=== PATIENT | male | born 1940 | race Caucasian/White ===

== ENCOUNTER 2017-03-14 07:35 | Outpatient (CLI) | payer MEDICARE, BC ==
--- NOTE | 2017-03-14 10:40 | CT ---
CT ABDOMEN AND PELVIS WITH AND WITHOUT IV CONTRAST: Date: 03/14/17 HISTORY: 76-year-old male with hematuria and enlarged prostate. Kidney stones. Appendectomy. FINDINGS: Lung bases are unremarkable. No calcified gallstones are seen. There are multiple small low density lesions in the liver measuring up to 7.0 mm. A small hiatal hernia is present. The spleen, pancreas, and adrenal glands are unremarkable. There is a tiny calculus in the inferior pole of the right kidney. No calculi seen in the left kidne y, either ureter, or the urinary bladder. No hydroureteronephrosis is noted on either side. The pros grijalva is enlarged. There is a 3.5 cm exophytic cyst arising from the superior pole of the right kidne y. There are parapelvic cysts in the left kidney. No enhancing solid mass is seen arising from the k idneys. There is normal contrast excretion into the ureters and the urinary bladder. No free air, free fluid, or lymphadenopathy noted in the abdomen or pelvis. The small bowel loops ar e not abnormally dilated. There is colonic diverticulosis. Vascular calcifications are present witho ut evidence of aneurysmal dilatation of the abdominal aorta. There are degenerative changes in the s pine. IMPRESSION: 1. Tiny nonobstructing right renal calculus. 2. Bilateral renal cysts. 3. Prostatic enlargement. 4. Small hiatal hernia. 5. Small low density lesions in the liver, likely cysts. 6. Colonic diverticulosis. POS: [facility]
[2017-03-14] MEDS ORDERED: Iopamidol 370 76% 100 ML VIAL ONE (14:24)
== END 2017-03-14 07:36 | disposition home or self-care (01) ==
LOC: CT 07:35
PROVIDERS: ATTEND Urology
DX: R31.29 Other microscopic hematuria (principal); N20.0 Calculus of kidney; N28.1 Cyst of kidney, acquired; N40.0 Benign prostatic hyperplasia without lower urinary tract symptoms; K44.9 Diaphragmatic hernia without obstruction or gangrene; K76.9 Liver disease, unspecified; K57.30 Diverticulosis of large intestine without perforation or abscess without bleeding
CPT/HCPCS: 74178

== ENCOUNTER 2019-01-08 08:16 | Outpatient (CLI) | payer MEDICARE, BC ==
--- NOTE | 2019-01-08 08:39 | RAD ---
EXAM: Chest 2 views: HISTORY: Sarcoma COMPARISON: None. FINDINGS: There is a normal-sized cardiomediastinal silhouette. There is no evidence of consolidation, mass, or pleural effusion. The bones are unremarkable. IMPRESSION: No evidence of acute cardiopulmonary disease
== END 2019-01-08 08:17 | disposition home or self-care (01) ==
LOC: BICRAD 08:16
PROVIDERS: ATTEND Specialist
DX: C76.1 Malignant neoplasm of thorax (principal)
CPT/HCPCS: 71046

== ENCOUNTER 2019-01-08 15:54 | Outpatient (CLI) | payer MEDICARE, BC | END 2019-01-08 15:55 | disposition home or self-care (01) | LOC: LABBT 15:54 | PROVIDERS: ATTEND Specialist | DX: Z01.810 Encounter for preprocedural cardiovascular examination (principal); C80.1 Malignant (primary) neoplasm, unspecified | CPT/HCPCS: 36415; 71046; 80053; 85025; 93005; 93010 ==

== ENCOUNTER 2019-01-09 09:27 | Outpatient (CLI) | payer MEDICARE, BC ==
--- NOTE | 2019-01-09 10:57 | CT ---
CT CHEST WITH IV CONTRAST CT ABDOMEN WITH IV CONTRAST CT PELVIS WITH IV CONTRAST: HISTORY: high-grade myxofibrosarcoma upper back, status post resection COMPARISON: CT abdomen pelvis of 03/14/2017 FINDINGS: No mediastinal, hilar or axillary mass or lymphadenopathy seen. A tiny pericardial effusion is presen t. No pneumothoraces or pleural effusions are identified. No lung masses are seen. There is subsegmental atelectasis versus scarring in the right upper lobe. A small right perifissural nodule i s seen along the minor fissure. There are multiple small low-density lesions which are also seen on the previous exam. The largest of these measures 14 mm in the dome of the liver and is consistent with a simple cyst. 4 cm right renal cortical cyst and parapelvic cysts in the left kidney are again seen. Tiny nonobstructing calcu mirtha in the inferior pole of the right kidney is again noted. The spleen, pancreas and adrenal glands are normal. No calcified gallstones are seen. No free air, free fluid or lymphadenopathy seen in the abdomen or pelvis. The small bowel loops are n ot abnormally dilated. The patient is post appendectomy. Colonic diverticulosis is again seen. The prostate is enlarged. There are vascular calcifications without evidence of aneurysmal dilatation of the abdominal aorta. There are degenerative changes in the thoracic lumbar spine. No osteolytic or osteoblastic lesions are seen. IMPRESSION: No evidence of metastatic disease to the chest, abdomen or pelvis.
[2019-01-09] MEDS ORDERED: ISOVUE-370 76%-LOCM 1 ML ONE (11:45)
== END 2019-01-09 09:28 | disposition home or self-care (01) ==
LOC: BICCT 09:27
PROVIDERS: ATTEND Internal Medicine Hematology & Oncology
DX: C49.8 Malignant neoplasm of overlapping sites of connective and soft tissue (principal)
CPT/HCPCS: 71260; 74177

== ENCOUNTER 2019-01-09 10:44 | Day surgery (SDC) | payer MEDICARE, BC ==
[2019-01-08 16:10] VITALS: BMI 25.2
--- NOTE | 2019-01-09 08:33 | HP ---
HISTORY OF PRESENT ILLNESS: Rishi Mosley is a 78-year-old male patient, had a left upper back lesion excised in the office on 12/22/2018. Pathology reveals a sarcoma, tumor to the margin which is more encapsulated. It has been submitted for outside evaluation, it measured 4.2 x 3.4 cm x 1.18 cm. He had a CBC, comprehensive metabolic profile, and a chest x-ray that was unremarkable. 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 The patient underwent a CAT scan the morning of surgery of chest, abdomen, and pelvis. He has seen Dr. Nunes. He is being referred to [place] for Radiation Oncology as he has recently moved to [place] to be closer to his family. MEDICATIONS: 1. Claritin. 2. Lipitor. 3. Avodart. 4. Flomax. 5. Lisinopril 20 mg a day. 6. Amlodipine 10 mg a day. 7. Clonidine 0.1 mg once a day. PAST MEDICAL HISTORY: History of urinary retention, on Flomax. He is followed by Dr. Andrews, Cardiology; Dr. Sawyer Higgins, Urology, for BPH in the past. PAST SURGICAL HISTORY: Appendectomy in 2006, left elbow surgery in 1969, tonsillectomy in 1948, excision of left upper back tumor mass in office recently as described above, tobacco cessation in 1979, alcohol rarely. The patient is retired. He is . ALLERGIES: BIAXIN. FAMILY HISTORY: Significant for stroke. REVIEW OF SYSTEMS: Ten-point noncontributory. PHYSICAL EXAMINATION: VITAL SIGNS: Weight 170 pounds, 69 inches, BMI 24. Blood pressure 134/86, heart rate 110, temperature 99.1 degrees. HEAD, EARS, EYES, NOSE, AND THROAT: Unremarkable. LUNGS: Clear to auscultation. CARDIAC: Regular rate and rhythm without murmur or gallop. ABDOMEN: Soft and nontender. EXTREMITIES: Unremarkable. No ankle edema. Palpable pedal pulses. LYMPH: No lymphadenopathy in neck, axilla, groins. NEUROLOGIC: Neurologically intact. No focal deficit. SKIN: Color normal. Left upper back wound about 4.5 cm, well healed. No palpable masses. ASSESSMENT AND PLAN: Sarcoma, left upper back. We will plan wide excision under anesthesia. He will be having a CAT scan on the morning of surgery and we will plan wide local excision under general anesthesia in the right lateral decubitus position on a bee bag. He understands risks of infection, bleeding, reoperation, and consents. He will be seeing Radiation Oncology in [place]. Dr. Nunes has arranged this. Job ID: [id number]
[2019-01-09] MEDS ORDERED: Ketorolac Tromethamine 30 MG/ML VIAL ONE (11:40)
[2019-01-09] MEDS ORDERED: ceFAZolin Sodium (SDC) 2 GM/100 ML BAG ONE (11:40)
[2019-01-09] MEDS ORDERED: Fentanyl 100 MCG/2 ML VIAL ONE (13:11)
[2019-01-09] MEDS ORDERED: Rocuronium Bromide 10 MG/ML (10ML VIAL) ONE (13:51)
[2019-01-09] MEDS ORDERED: PROPOFOL 200 MG/20 ML VIAL ONE (13:51)
[2019-01-09] MEDS ORDERED: Ondansetron PF 4 MG/2 ML Vial ONE (13:51)
[2019-01-09] MEDS ORDERED: Lidocaine 1% PF 5 ML VIAL ONE (13:51)
[2019-01-09] MEDS ORDERED: Glycopyrrolate 0.2 MG/ML 5 ML SYRINGE ONE (13:51)
[2019-01-09] MEDS ORDERED: Lidocaine 2% PF 5 ML VIAL ONE (13:57)
[2019-01-09] MEDS ORDERED: Bupivacaine HCl 0.5%/Epinephrine 1:200,000/PF 30 ml Vial ONE (13:57)
[2019-01-09] MEDS ORDERED: Bacitracin Zinc Ointment 30 gm TUBE ONE (13:57)
--- NOTE | 2019-01-09 15:53 | OP ---
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 PROCEDURE PERFORMED: Wide local excision of skin and soft tissue and underlying fascia spindle cell tumor, high-grade left upper back. SPECIMENS: 5.5 x 8 cm incision, 7 cm layer closure. ANESTHESIA: General, local of 0.5% Marcaine with epinephrine 30 mL mixed with 2% Xylocaine 10 mL, total volume mixture used. FINDINGS: No visible tumor seen. DESCRIPTION OF PROCEDURE: The patient was taken to the operating room, where under general anesthesia in the right lateral decubitus position, using a bee bag in proper padding, his left upper back was prepared with ChloraPrep and draped in routine fashion. An elliptical incision was made around the old scar, excising the old scar, carried down through the skin and subcutaneous tissue in-line. The subcutaneous tissue was dissected free, excising wide margins of dimensions described above. This dissection was carried down excising the entire resected capsule from previously without entering it. Underlying fascia overlying the musculature was excised exposing the muscle. Specimen labeled margins and submitted to Pathology. Hemostasis was gained with the cautery. Subcutaneous tissues were approximately with [id number] suture of 3-0 Monocryl, skin with subdermal 4-0 Monocryl, and [place] glue applied. The patient tolerated the procedure well. Job ID: [id number]
== END 2019-01-09 16:40 | disposition home or self-care (01) ==
LOC: SDC 10:44
PROVIDERS: ATTEND Specialist
PROC: 0JB70ZZ Excision of Back Subcutaneous Tissue and Fascia, Open Approach (ICD-10-PCS; principal; 2019-01-09)
DX: C44.509 Unspecified malignant neoplasm of skin of other part of trunk (principal); Z79.899 Other long term (current) drug therapy; Z88.1 Allergy status to other antibiotic agents; C49.8 Malignant neoplasm of overlapping sites of connective and soft tissue
CPT/HCPCS: 71260; 74177; 88305; J0131; J0670; J0690; J1885; J2001; J2405; J2704; J3010; Q9966